=== PATIENT | male | born 1975 | race Caucasian/White ===

== ENCOUNTER 2016-07-21 12:46 | Emergency (ER) | payer BC ==
[2016-07-21 12:48] VITALS: TEMP 36.7
[2016-07-21] MEDS: PROPARACAINE HCL 0.5% OP SOLN 15 ML BTL OP STA ×2 (13:05→13:12)
[2016-07-21 13:57] VITALS: BP 100/72; PULSE 102; O2SAT 96
--- NOTE | 2016-07-21 15:25 | EMERGENCY ROOM VISIT NOTE ---
History First contact with patient: 12:54 Chief Complaint: EYE PAIN Stated Complaint: SOMETHING IN L EYE History of Present Illness The patient is a 41 year old male who presents to the Emergency Room with complaints of metal in his left eye. 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 The patient reports that his eye was really irritated and red yesterday. He tried to remove it at home with a Q-tip and a magnet. The patient reports sensitivity to light and a headache. He does not feel that his vision has been adversely affected. The patient does were contacts, but has not been wearing contacts since his injury. He rates his discomfort a 4 out of 10. He denies any purulent drainage or blood from the eye. Tetanus immunization is unknown, however the patient refuses a tetanus immunization. Review of Systems 10 system review was performed and was negative except for pertinent positives and negatives as indicated in history of present illness Past Medical/Surgical History Medical Problems: (1) Acute appendicitis (2) Bronchitis Family History Diabetes mellitus Heart disease Hypertension Lung disease Social History Smoking Status: Former Smoker Alcohol Use: occasionally Marital Status: Housing Status: lives with family Occupation Status: employed Current/Historical Medications No Active Prescriptions or Reported Meds Allergies Coded Allergies: No Known Allergies (Unverified , 07/21/16) Physical Exam Vital Signs Date Time Temp Pulse Resp B/P Pulse Ox O2 Delivery O2 Flow Rate FiO2 07/21/16 13:57 102 18 100/72 96 07/21/16 12:48 36.7 96 20 117/94 95 Room Air Right Eye Acuity: 20/70 Left Eye Acuity: 20/70 Pain Rating (0-10): 1.0 Physical Exam CONSTITUTIONAL: Healthy and well nourished. Alert and oriented X 3 with positive affect. Patient does not appear in any significant distress. HEENT: Normocephalic, atraumatic. Pupils equal, round and reactive. Examination shows left eye conjunctival injection. No obvious globe deformity. Pupils equal round and reactive to light. No mucopurulent drainage. EOMs intact without discomfort. NECK: Full active range of motion without discomfort. MUSCULOSKELETAL: Full range of motion of all joints without discomfort. INTEGUMENTARY: No rash or other significant dermatologic conditions noted. NEUROLOGIC: Cranial nerves II-XII grossly intact. No focal neurologic deficits noted. Medical Decision & Procedures Procedure Slit lamp and fluorescein exam were performed after administering 2 drops of Alcaine in the eye. Alcaine completely resolved the patient's discomfort. Further examination shows a metallic rust ring at 9:00, and near the central axis of vision. Negative hyphema. Fluorescein exam does not show any additional corneal injuries or abrasions. An Nedra brush was used for rest debridement. I estimate approximately 70% debridement. I did not feel comfortable with any further debridement because of risk of corneal perforation. I refluoresceined the eye with a negative Hector test. The patient tolerated the procedure well. ED Course Patient history and physical exam were performed. Nurse's notes were reviewed. Slit lamp and fluorescein exam were performed to show a residual rust ring. There was no metallic foreign body on the eye, likely removed by the patient last night. I did perform Nedra brush debridement. There was still some rust remaining. 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 He was encouraged to apply cool compresses to the eye , and alternate ibuprofen and Tylenol as needed for pain. He refused any stronger analgesics. As indicated in history of present illness, the patient's tetanus immunization is unknown. He refused a tetanus booster today. The patient was happy with plan of care, voiced understanding of all discharge instructions, and denied any discomfort at the conclusion of my exam. Impression Primary Impression: Foreign body of left cornea with residual material Departure Information Dispostion Home / Self-Care Condition GOOD Prescriptions No Active Prescriptions or Reported Meds Referrals Juan J Medrano MD Forms HOME CARE DOCUMENTATION FORM, IMPORTANT VISIT INFORMATION Patient Instructions My [facility] Additional Instructions Intermittently apply a cool compress to the eye for relief. Ibuprofen 800 mg and/or Tylenol 1000 mg every 8 hours. You may also alternate these medications for more effective pain relief: Ibuprofen --4 HRS--> Tylenol --4 HRS--> ibuprofen --4 HRS--> Tylenol .... Suggest follow-up with Dr. Medrano for recheck. Call his office for an appointment. Problem Qualifiers Primary Impression: Foreign body of left cornea with residual material Encounter type: initial encounter Qualified Codes: T15.02XA - Foreign body in cornea, left eye, initial encounter
== END 2016-07-21 13:58 | disposition home or self-care (01) ==
LOC: C.EDB 12:47 → C.EDD 13:58
DX: T15.02XA Foreign body in cornea, left eye, initial encounter (principal); W45.8XXA Other foreign body or object entering through skin, initial encounter; Z87.891 Personal history of nicotine dependence; Z83.3 Family history of diabetes mellitus; Z82.49 Family history of ischemic heart disease and other diseases of the circulatory system